=== PATIENT | male | born 1995 | race African-American/Black ===

== ENCOUNTER 2017-08-28 00:34 | Emergency (ER) | payer OTHER ==
[2017-08-28] MEDS ORDERED: NS 0.9% 1000 ML* 2,000 ML IV ONE ×2 (00:38→00:40)
[2017-08-28] MEDS ORDERED: Metoclopramide IV* 5 MG/ML 2 ML VIAL IV SLOW PU ONE (00:40)
[2017-08-28 01:02] LABS: ABS Basophils 0 10^3/ul (0-0.2); ABS Eosinophils 0.1 10^3/ul (0-0.6); ABS Lymphocytes 3.1 10^3/ul (1.0-4.8); ABS Monocytes 0.7 10^3/ul (0-0.8); ABS Neutrophils 10.9 10^3/ul (1.5-7.7); ABS Nucleated RBC 0 10^3/ul; Hematocrit 36 % (42-52); Hemoglobin 11.1 g/dl (14.0-18.0); Mean Corpuscular HGB Conc 31 g/dl (31-36); Mean Corpuscular Hemoglobin 22 pg (27-31); Mean Corpuscular Volume 72 fL (80-94); Red Blood Count 4.96 10^6/ul (4.00-5.40); Red Cell Distribution Width 14 % (10.5-15); White Blood Count 14.8 10^3/ul (3.5-10.8)
[2017-08-28 01:39] LABS: EGFR Non-African American 76.4 (>60)
--- NOTE | 2017-08-28 02:15 | ED ---
Substance Abuse/Use - HPI Summary HPI Summary: This is scribe Bertrand Sheridanin documenting for attending Dr. Caesar Keith MD. A 22 y/o male MAGALY presents to ED s/p found on street unconscious. As per triage , "Found in street vomiting pt uncocous on the ground at [facility] with vomit on him and pt vomited once in route". LEVEL 5 CAVEAT - History Of Current Complaint Chief Complaint: EDAltMentalStatus Stated Complaint: ETOH Time Seen by Provider: 08/28/17 00:37 Hx From Patient Unobtainable Due To: Altered Mental Status - Allergies/Home Medications Allergies/Adverse Reactions: Allergies Allergy/AdvReac Type Severity Reaction Status Date / Time No Known Allergies Allergy Verified 03/07/13 19:25 Home Medications: Home Medications NK [No Home Medications Reported] 08/28/17 [History Confirmed 08/28/17] PMH/Surg Hx/FS Hx/Imm Hx Infectious Disease History: Unable to Obtain/Confirm Infectious Disease History: Denies: Traveled Outside the [place] in Last 30 Days - Social History Alcohol Use: None Substance Use Type: Reports: None Review of Systems Negative: Fever All Other Systems Reviewed And Are Negative: No Physical Exam - Summary Physical Exam Summary: VITAL SIGNS: Reviewed. GENERAL: Patient is a well-developed and nourished male who is lying comfortable in the stretcher. Patient is not in any acute respiratory distress. Patient responds to pain and moving all extremities. Patient is shivering. Rectal temperature is 94 F. HEAD AND FACE: No signs of trauma. No ecchymosis, hematomas or skull depressions. No sinus tenderness. EYES: PERRLA, EOMI x 2, No injected conjunctiva, no nystagmus. EARS: Hearing grossly intact. Ear canals and tympanic membranes are within normal limits. MOUTH: Oropharynx within normal limits. NECK: Supple, trachea is midline, no adenopathy, no JVD, no carotid bruit, no c- spine tenderness, neck with full ROM. CHEST: Symmetric, no tenderness at palpation LUNGS: Clear to auscultation bilaterally. No wheezing or crackles. CVS: Regular rate and rhythm, S1 and S2 present, no murmurs or gallops appreciated. ABDOMEN: Soft, non-tender. No signs of distention. No rebound no guarding, and no masses palpated. Bowel sounds are normal. EXTREMITIES: FROM in all major joints, no edema, no cyanosis or clubbing. NEURO: Alert and oriented x 3. No acute neurological deficits. Speech is normal and follows commands. SKIN: Dry and warm Triage Information Reviewed: Yes Vital Signs On Initial Exam: Initial Vitals Pulse Resp BP Pulse Ox 63 22 119/62 100 08/28/17 00:40 08/28/17 00:40 08/28/17 00:40 08/28/17 00:40 Vital Signs Reviewed: Yes Diagnostics - Vital Signs Vital Signs Temp Pulse Resp BP Pulse Ox 08/28/17 02:00 83 23 100 08/28/17 01:40 72 15 99/59 99 08/28/17 01:10 65 16 92/58 98 08/28/17 01:00 62 16 100 08/28/17 00:47 94.5 F 63 18 119/62 100 08/28/17 00:40 63 22 119/62 100 - Laboratory Lab Results: Lab Results 08/28/17 08/28/17 Range/Units 00:50 00:50 WBC 14.8 H (3.5-10.8) 10^3/ul RBC 4.96 (4.00-5.40) 10^6/ul Hgb 11.1 L (14.0-18.0) g/dl Hct 36 L (42-52) % MCV 72 L (80-94) fL MCH 22 L (27-31) pg MCHC 31 (31-36) g/dl RDW 14 (10.5-15) % Plt Count Pending MPV Pending Neut % (Auto) Pending Lymph % (Auto) Pending [place] % (Auto) Pending Eos % (Auto) Pending Baso % (Auto) Pending Absolute Neuts (auto) 10.9 H (1.5-7.7) 10^3/ul Absolute Lymphs (auto) 3.1 (1.0-4.8) 10^3/ul Absolute Monos (auto) 0.7 (0-0.8) 10^3/ul Absolute Eos (auto) 0.1 (0-0.6) 10^3/ul Absolute Basos (auto) 0 (0-0.2) 10^3/ul Absolute Nucleated RBC 0 10^3/ul Nucleated RBC % Pending Sodium 140 (135-145) mmol/L Potassium 3.6 (3.5-5.0) mmol/L Chloride 106 (101-111) mmol/L Carbon Dioxide 20 L (22-32) mmol/L Anion Gap 14 H (2-11) mmol/L BUN 13 (6-24) mg/dL Creatinine 1.19 H (0.67-1.17) mg/dL Est GFR ( Amer) 92.5 (>60) Est GFR (Non-Af Amer) 76.4 (>60) BUN/Creatinine Ratio 10.9 (8-20) Glucose 123 H (70-100) mg/dL Calcium 8.9 (8.6-10.3) mg/dL Total Bilirubin 0.40 (0.2-1.0) mg/dL AST 22 (13-39) U/L ALT 11 (7-52) U/L Alkaline Phosphatase 36 (34-104) U/L Total Creatine Kinase 382 H (10-223) U/L Total Protein 7.3 (6.4-8.9) g/dL Albumin 4.6 (3.2-5.2) g/dL Globulin 2.7 (2-4) g/dL Albumin/Globulin Ratio 1.7 (1-3) TSH Pending Salicylates < 2.50 (<30) mg/dL Acetaminophen < 15 mcg/mL Serum Alcohol 211 H (<10) mg/dL Result Diagrams: 08/28/17 00:50 08/28/17 00:50 Lab Statement: Any lab studies that have been ordered have been reviewed, and results considered in the medical decision making process. Re-Evaluation - Re-Evaluation First Eval Re-Evaluation Time: 05:20 Change: Improved Comment: Patient is awake, alert and oriented. He will take UBER home. Course/Dx - Course Course Of Treatment: A 22 y/o male BIBAlis presents to ED s/p found on street unconscious. As per triage, "Found in street vomiting pt uncocous on the ground at [facility] with vomit on him and pt vomited once in route". No laboratory scans were done. In the ED course, the patient recieved Reglan and IV fluids. During reevaluation, the patient was awake, alert and oriented. He noted that he will take [facility]BER home. Pt will be discharged with a diagnosis of alcohol intoxication. Pt is to follow up with PCP in 1-2 days. Pt is agreeable with this plan. - Diagnoses Provider Diagnoses: Alcohol intoxication Discharge - Sign-Out/Discharge Documenting (check all that apply): Patient Departure - DISCHARGE - Discharge Plan Condition: Stable Disposition: HOME Patient Education Materials: Alcohol Intoxication (ED) Referrals: [facility] [Outside] - 2 Days Additional Instructions: RETURN TO ED FOR ANY NEW OR WORSENING SYMPTOMS.
[2017-08-28 02:24] LABS: Eosinophil % 0.8 % (0-6); Nucleated Red Blood Cells % 0.2; Platelet Count Platelets clumped. 10^3/ul (150-450)
[2017-08-28 05:12] LABS: Urine Appearance Clear; Urine Blood Negative (Negative); Urine Color Straw; Urine Ketones Negative (Negative); Urine Protein Negative (Negative); Urine Specific Gravity 1.008 (1.010-1.030); Urine Urobilinogen Negative (Negative)
[2017-08-28 06:09] VITALS: BP 98/64
== END 2017-08-28 06:07 | disposition home or self-care (01) ==
LOC: ED 00:34
DX: F10.129 Alcohol abuse with intoxication, unspecified (principal)
CPT/HCPCS: 36415; 80053; 80307; 80320; 80329; 81003; 82550; 84443; 85025; 96361; 96374; 99283; G0480; J2765